=== PATIENT | male | born 1945 | race Two or more races ===

== ENCOUNTER 2017-10-05 02:38 | Emergency (ER) | payer OTHER ==
[~2017-10-05] VITALS: Ht 185.4 cm; Wt 103.4 kg
== END 2017-10-05 14:41 | disposition home or self-care (01) ==
LOC: ER 02:38
DX: R33.8 Other retention of urine (principal)

== ENCOUNTER 2017-10-18 11:50 | Emergency (ER) | payer OTHER ==
[~2017-10-18] VITALS: Ht 185.4 cm; Wt 104.3 kg
[2017-10-18] MEDS ORDERED: TAMS0.4C (12:01)
[2017-10-18] MEDS ORDERED: FINASTERIDE5 MG (12:02)
== END 2017-10-18 13:01 | disposition home or self-care (01) ==
LOC: ER 11:50
DX: R33.8 Other retention of urine (principal)

== ENCOUNTER 2017-10-19 10:53 | Emergency (ER) | payer OTHER ==
[~2017-10-19] VITALS: Ht 185.4 cm; Wt 102.5 kg
[~2017-10-19 10:53] MED LIST: FINASTERIDE5 MG; TAMS0.4C
== END 2017-10-19 17:52 | disposition home or self-care (01) ==
LOC: ER 10:53
DX: N39.0 Urinary tract infection, site not specified (principal); B96.1 Klebsiella pneumoniae [K. pneumoniae] as the cause of diseases classified elsewhere

== ENCOUNTER 2017-11-16 05:00 | Emergency (ER) | payer OTHER ==
[~2017-11-16] VITALS: Ht 188 cm; Wt 98.9 kg
[2017-11-16] MEDS ORDERED: ULTRACET (05:14)
[2017-11-16] MEDS ORDERED: BACTRIM DS TAB1 EACH PO (07:53)
== END 2017-11-16 08:44 | disposition home or self-care (01) ==
LOC: ER 05:00
DX: R33.8 Other retention of urine (principal); N39.0 Urinary tract infection, site not specified; B95.2 Enterococcus as the cause of diseases classified elsewhere

== ENCOUNTER 2017-11-25 09:50 | Emergency (ER) | payer OTHER ==
[~2017-11-25] VITALS: Ht 185.4 cm; Wt 99.3 kg
[~2017-11-25 09:50] MED LIST changes: +BACTRIM DS TAB1 EACH PO; +ULTRACET
== END 2017-11-25 20:42 | disposition home or self-care (01) ==
LOC: ER 09:50
DX: R33.8 Other retention of urine (principal)

== ENCOUNTER 2017-11-28 22:25 | Emergency (ER) | payer OTHER | END 2017-11-29 00:26 | disposition home or self-care (01) | LOC: ER 22:25 | DX: R33.8 Other retention of urine (principal) ==

== ENCOUNTER → 2017-12-02 | Emergency (ER) | payer OTHER ==
[~2017-12-02] VITALS: Ht 188 cm; Wt 77.1 kg
== END | disposition home or self-care (01) ==
LOC: ER 11:41
DX: R33.8 Other retention of urine (principal); N39.0 Urinary tract infection, site not specified

== ENCOUNTER 2017-12-14 10:23 | Outpatient (CLI) | payer OTHER | END 2017-12-14 12:40 | disposition home or self-care (01) | LOC: RAD 501 10:23 | DX: M19.041 Primary osteoarthritis, right hand (principal) ==

== ENCOUNTER 2018-03-07 15:15 | Outpatient (CLI) | payer OTHER | END 2018-03-07 15:23 | disposition home or self-care (01) | LOC: MRI 15:15 | DX: M54.5 Low back pain (principal); M51.87 Other intervertebral disc disorders, lumbosacral region | CPT/HCPCS: 72148 ==

== ENCOUNTER 2023-10-17 14:09 | Outpatient (CLI) | payer OTHER | END 2023-10-17 14:14 | disposition home or self-care (01) | LOC: RAD 14:09 | PROVIDERS: ATTEND Internal Medicine Rheumatology | DX: M19.041 Primary osteoarthritis, right hand (principal); M19.042 Primary osteoarthritis, left hand; M17.11 Unilateral primary osteoarthritis, right knee; M17.12 Unilateral primary osteoarthritis, left knee ==

== ENCOUNTER 2023-10-24 14:08 | Outpatient (CLI) | payer OTHER | END 2023-10-24 14:18 | disposition home or self-care (01) | LOC: RAD 14:08 | DX: M47.817 Spondylosis without myelopathy or radiculopathy, lumbosacral region (principal); M16.11 Unilateral primary osteoarthritis, right hip; M16.12 Unilateral primary osteoarthritis, left hip ==

== ENCOUNTER 2023-12-19 15:16 | Outpatient (CLI) | payer OTHER | END 2023-12-19 15:29 | disposition home or self-care (01) | LOC: MRI 15:16 | PROVIDERS: ATTEND Physical Medicine & Rehabilitation Hospice and Palliative Medicine | DX: M54.50 Low back pain, unspecified (principal); M51.87 Other intervertebral disc disorders, lumbosacral region | CPT/HCPCS: 72148 ==

== ENCOUNTER 2023-12-21 12:37 | Outpatient (CLI) | payer OTHER | END 2023-12-21 12:40 | disposition home or self-care (01) | LOC: NUCLEAR 12:37 | PROVIDERS: ATTEND Physical Medicine & Rehabilitation Hospice and Palliative Medicine | DX: M13.0 Polyarthritis, unspecified (principal) | CPT/HCPCS: 78315; A9503 ==

== ENCOUNTER 2023-12-25 10:53 | Outpatient (CLI) | payer OTHER | END 2023-12-25 10:54 | disposition home or self-care (01) | LOC: NUCLEAR 10:53 | PROVIDERS: ATTEND Physical Medicine & Rehabilitation Hospice and Palliative Medicine | DX: I87.2 Venous insufficiency (chronic) (peripheral) (principal) ==

== ENCOUNTER 2023-12-28 07:33 | Outpatient (CLI) | payer OTHER | END 2023-12-28 12:42 | disposition home or self-care (01) | LOC: MRI 07:33 | DX: M25.551 Pain in right hip (principal) | CPT/HCPCS: 73721 ==

== ENCOUNTER 2024-05-15 14:40 | Outpatient (CLI) | payer OTHER | END 2024-05-15 14:44 | disposition home or self-care (01) | LOC: RAD 14:40 | PROVIDERS: ATTEND Orthopaedic Surgery | DX: M16.0 Bilateral primary osteoarthritis of hip (principal) ==

== ENCOUNTER 2024-08-12 11:23 | Outpatient (CLI) | payer OTHER | END 2024-08-12 11:27 | disposition home or self-care (01) | LOC: RAD 11:23 | PROVIDERS: ATTEND Orthopaedic Surgery | DX: M16.0 Bilateral primary osteoarthritis of hip (principal) ==

== ENCOUNTER 2025-01-24 11:47 | Outpatient (CLI) | payer OTHER | END 2025-01-24 11:55 | disposition home or self-care (01) | LOC: TOM 11:47 | DX: K40.90 Unilateral inguinal hernia, without obstruction or gangrene, not specified as recurrent (principal) ==

== ENCOUNTER 2025-02-11 14:04 | Outpatient (CLI) | payer OTHER | END 2025-02-11 14:13 | disposition home or self-care (01) | LOC: RAD 14:04 | DX: M25.851 Other specified joint disorders, right hip (principal); M25.852 Other specified joint disorders, left hip ==

== ENCOUNTER 2025-02-14 11:36 | Outpatient (CLI) | payer OTHER | END 2025-02-14 11:41 | disposition home or self-care (01) | LOC: RAD 11:36 | PROVIDERS: ATTEND Orthopaedic Surgery Sports Medicine | DX: M17.0 Bilateral primary osteoarthritis of knee (principal) ==